=== PATIENT | female | born 1965 | race Caucasian/White ===

== ENCOUNTER 2017-01-09 08:12 | Emergency (ER) | payer OTHER ==
[~2017-01-09] VITALS: Ht 157.5 cm; Wt 58.1 kg
[2017-01-09 08:18] VITALS: Ht 157.5 cm; Wt 58.1 kg
[2017-01-09] MEDS ORDERED: ACETAMINOPHEN 500 MG TAB PO STA (08:33)
[2017-01-09] MEDS ORDERED: LIDOCAINE 1% (MDV) 20 ML INJ SC ONE (09:00)
[2017-01-09] MEDS ORDERED: DOXY100T20 PO (09:08)
--- NOTE | 2017-01-09 09:11 | ERD ---
ER Documentation Chief Complaint Chief Complaint Pt presents with lump to L neck 2days and L upper armX2 months. HPI This 51-year-old female presents with a lump in the left side of her neck for the last 2 days. She has had a lesion on her upper back which has become more painful and red over the last week as well. She denies fevers, vomiting, shortness breath chest pain. ROS All systems reviewed and are negative except as per history of present illness. Medications Home Meds Active Scripts Doxycycline Hyclate* (Doxycycline Hyclate*) 100 Mg Tablet.dr, 100 MG PO BID for 7 Days, TAB Prov:MOIZ STEPHENS MD 01/09/17 Allergies Allergies: Coded Allergies: No Known Allergy (Unverified , 03/22/13) PMhx/Soc History of Surgery: No Anesthesia Reaction: No Hx Neurological Disorder: No Hx Respiratory Disorders: No Hx Cardiac Disorders: No Hx Psychiatric Problems: No Hx Miscellaneous Medical Probl: No Hx Alcohol Use: No Hx Substance Use: No Hx Tobacco Use: No Smoking Status: Never smoker Physical Exam Vitals Vital Signs Date Time Temp Pulse Resp B/P Pulse Ox O2 Delivery O2 Flow Rate FiO2 01/09/17 08:18 100.0 70 18 153/78 100 Physical Exam Const: [] Alert, [id number]. Head: Atraumatic Eyes: Normal Conjunctiva ENT: Normal External Ears, Nose and Mouth. Tender mobile subcutaneous nodule consistent with a lymph node on the inferior portion of the left side of the neck. There is no erythema, warmth. Neck: Full range of motion..~ No meningismus. Resp: Clear to auscultation bilaterally Cardio: Regular rate and rhythm, no murmurs Abd: Soft, non tender, non distended. Normal bowel sounds Skin: No petechiae or rashes 2 cm erythematous fluctuant lesion on the left upper back. Back: No midline or flank tenderness Ext: No cyanosis, or edema Neur: Awake and alert Psych: Normal Mood and Affect Results 24 hrs Current Medications Medications (Trade) Dose Ordered Sig/Panda Route PRN Reason Start Time Stop Time Status Last Admin Dose Admin Lidocaine (Xylocaine 1% (Mdv) 20 ml) 20 ml ONCE ONCE SC 01/09/17 09:00 01/09/17 09:01 DC Acetaminophen (Tylenol Tab) 500 mg ONCE STAT PO 01/09/17 08:33 01/09/17 08:35 DC Procedures/MDM Patient presents with signs and symptoms of likely infected sebaceous cyst on left upper back. There is some swelling on the left side of the neck which appears to be corresponding reactive lymph node. Unit-left upper back was prepped with Betadine. 3 cc of lidocaine was used for local infiltration. #11 scalpel was used to incise the wound. Infected sebaceous material was expressed the lesion was debrided. Wound was not packed due to the small size. Wound was dressed and patient tolerated procedure well. Patient was discharged home instructions for wound care and prescription for doxycycline and wound care follow-up, return precautions for worsening redness, fevers with primary care doctor. Departure Diagnosis: Primary Impression: Sebaceous cyst Condition: Stable Patient Instructions: Sebaceous Cyst, Infected (I And D) Additional Instructions: Take Tylenol or ibuprofen for pain. Recheck for worsening redness, fevers, new or worsening symptoms or primary care doctor. MOIZ STEPHENS MD Jan 09, 2017 09:11
== END 2017-01-09 09:16 | disposition home or self-care (01) ==
LOC: FTE 08:12
DX: L72.3 Sebaceous cyst (principal)
CPT/HCPCS: 10060; Z7502; Z7610